=== PATIENT | male | born 1995 | race Caucasian/White ===

== ENCOUNTER 2022-05-13 03:52 | Emergency (ER) | payer BC ==
[~2022-05-13] VITALS: Ht 170.1 cm; Wt 86.2 kg
[2022-05-13 06:02] LABS: ALKALINE PHOSPHATASE 83 U/L (45-117); BUN 10 mg/dl (7-24); CHLORIDE 106 mmol/L (98-107); CREATININE 0.88 mg/dL (0.70-1.30); POTASSIUM 3.8 mmol/L (3.5-5.1); SGOT/AST 34 IU/L (3-35); SGPT/ALT 37 U/L (12-78); SODIUM 140 mmol/L (136-145); TOTAL PROTEIN 7.9 gm/dL (6.4-8.2)
[2022-05-13 06:13] LABS: HEMATOCRIT 41.5 % (42.0-52.0); MEAN CELL VOLUME 91.4 fl (80.0-94.0); MEAN CORPUSCULAR HGB 31.7 pg (27.0-31.0); MEAN CORPUSCULAR HGB CONC 34.7 g/dl (33.0-37.0); MEAN PLATELET VOLUME 9.5 fl (9.6-12.3); PLATELET COUNT AUTOMATED 428 10*3/uL (130-400); RED BLOOD COUNT 4.54 10*6/uL (4.50-5.90); RED CELL DISTRI WIDTH 12.9 % (0-14.5); WHITE BLOOD COUNT 29.1 10*3/uL (4.8-10.8)
[2022-05-13 06:21] LABS: MANUAL DIFF REFLEX YES
[2022-05-13 06:32] LABS: TOTAL CELLS COUNTED 100 #CELLS
[2022-05-13 06:33] LABS: PLATELET SUFFICIENCY HIGH (NORMAL)
== END 2022-05-13 06:39 | disposition short-term general hospital (02) ==
LOC: ED 03:52
PROVIDERS: Internal Medicine
DX: S02.32XA Fracture of orbital floor, left side, initial encounter for closed fracture (principal); S01.81XA Laceration without foreign body of other part of head, initial encounter; H05.3 Deformity of orbit; Y08.89XA Assault by other specified means, initial encounter; Y93.89 Activity, other specified; Y92.89 Other specified places as the place of occurrence of the external cause; Y99.8 Other external cause status

== ENCOUNTER → 2023-06-17 | Outpatient (CLI) | payer BC ==
[2023-06-17 09:20] LABS: BILIRUBIN Negative (Negative); BLOOD Negative (Negative); CLARITY Clear (Clear); COLOR Dark Yellow (Yellow); GLUCOSE Negative (Negative); KETONE Trace (Negative); LEUKO ESTERASE Trace (Negative); NITRITE Negative (Negative); SPECIFIC GRAVITY 1.025 (1.001-1.030)
[2023-06-17 09:25] LABS: BASO # 0.1 10*3/uL (0.0-0.1); BASO % 0.5 % (0.0-1.0); EOS # 0.1 10*3/uL (0.0-0.4); HEMATOCRIT 45.3 % (42.0-52.0); LYMPH # 2.8 10*3/uL (1.3-4.4); LYMPH % 27.6 % (27.0-41.0); MEAN CELL VOLUME 91.9 fl (80.0-94.0); MEAN CORPUSCULAR HGB 32.7 pg (27.0-31.0); MEAN CORPUSCULAR HGB CONC 35.5 g/dl (33.0-37.0); MEAN PLATELET VOLUME 9.8 fl (9.6-12.3); MONO # 0.7 10*3/uL (0.1-1.0); MONO % 7.4 % (3.0-9.0); NEUT # 6.3 10*3/uL (2.3-7.9); NEUT % 63.2 % (47.0-73.0); PLATELET COUNT AUTOMATED 327 10*3/uL (130-400); RED BLOOD COUNT 4.93 10*6/uL (4.50-5.90); RED CELL DISTRI WIDTH 12.7 % (0-14.5); RETICULOCYTE % 1.42 % (0.50-2.50)
[2023-06-17 09:44] LABS: MUCOUS 1+
[2023-06-17 11:03] LABS: ALKALINE PHOSPHATASE 85 U/L (46-116); BUN 9 mg/dl (9-23); CHLORIDE 102 mmol/L (98-107); CHOLESTEROL 196 mg/dL (<200); GAMMA GLUTAMYL TRANSPEPTIDASE 19 U/L (0-73); LDL CHOLESTEROL 114 mg/dL (9-159); POTASSIUM 3.8 mmol/L (3.4-5.1); SGPT/ALT 28 U/L (10-49); THYROXINE (T4) TOTAL 8.3 ug/dl (4.5-10.9); TOTAL PROTEIN 7.8 gm/dL (6.0-8.0); TRIGLYCERIDES 100 mg/dl (<150); URIC ACID 6.6 mg/dL (3.7-9.2)
[2023-06-17 11:26] LABS: VITAMIN D, 25-HYDROXY 32.1 ng/mL (30-100)
[2023-06-18 12:07] LABS: ANTI-DSDNA ANTIBODIES <1 IU/mL (0-9)
== END | disposition home or self-care (01) ==
LOC: LAB 08:52
PROVIDERS: ATTEND Family Medicine
DX: E55.9 Vitamin D deficiency, unspecified (principal); E78.5 Hyperlipidemia, unspecified; R79.89 Other specified abnormal findings of blood chemistry; R53.83 Other fatigue

== ENCOUNTER → 2024-02-18 | Outpatient (CLI) | payer BC ==
[2024-02-18 10:55] LABS: BASO # 0.1 10*3/uL (0.0-0.1); BASO % 1.3 % (0.0-1.0); EOS # 0.2 10*3/uL (0.0-0.4); EOS % 2.8 % (1.0-4.0); HEMATOCRIT 44.4 % (42.0-52.0); LYMPH # 2.4 10*3/uL (1.3-4.4); LYMPH % 34.8 % (27.0-41.0); MEAN CELL VOLUME 93.9 fl (80.0-94.0); MEAN CORPUSCULAR HGB 32.3 pg (27.0-31.0); MEAN CORPUSCULAR HGB CONC 34.5 g/dl (33.0-37.0); MEAN PLATELET VOLUME 10.1 fl (9.6-12.3); MONO # 0.7 10*3/uL (0.1-1.0); MONO % 9.9 % (3.0-9.0); NEUT # 3.5 10*3/uL (2.3-7.9); NEUT % 50.6 % (47.0-73.0); PLATELET COUNT AUTOMATED 303 10*3/uL (130-400); RED BLOOD COUNT 4.73 10*6/uL (4.50-5.90); RED CELL DISTRI WIDTH 12.6 % (0-14.5); RETICULOCYTE % 1.54 % (0.50-2.50); WHITE BLOOD COUNT 6.9 10*3/uL (4.8-10.8)
[2024-02-18 10:56] LABS: BILIRUBIN Negative (Negative); BLOOD Negative (Negative); CLARITY Clear (Clear); COLOR Yellow (Yellow); GLUCOSE Negative (Negative); KETONE Negative (Negative); LEUKO ESTERASE Negative (Negative); NITRITE Negative (Negative); UROBILINOGEN 0.2 E.U./dl (0.0-1.0)
[2024-02-18 11:04] LABS: RBC 0-2 rbc/hpf (0-2)
[2024-02-18 11:39] LABS: ALKALINE PHOSPHATASE 71 U/L (46-116); BUN 15 mg/dl (9-23); CHLORIDE 104 mmol/L (98-107); CHOLESTEROL 212 mg/dL (<200); GAMMA GLUTAMYL TRANSPEPTIDASE 17 U/L (0-73); LDL CHOLESTEROL 123 mg/dL (9-159); POTASSIUM 4.4 mmol/L (3.4-5.1); SGPT/ALT 42 U/L (5-49); TOTAL PROTEIN 7.7 gm/dL (6.0-8.0); TRIGLYCERIDES 115 mg/dl (<150)
[2024-02-18 17:37] LABS: VITAMIN D, 25-HYDROXY 18.9 ng/mL (30-100)
[2024-02-19 11:08] LABS: ANTI-DSDNA ANTIBODIES <1 IU/mL (0-9)
== END | disposition home or self-care (01) ==
LOC: LAB 10:26
PROVIDERS: ATTEND Family Medicine
DX: R06.02 Shortness of breath (principal); R53.83 Other fatigue; E78.5 Hyperlipidemia, unspecified; E55.9 Vitamin D deficiency, unspecified; R79.89 Other specified abnormal findings of blood chemistry

== ENCOUNTER → 2025-03-25 | Outpatient (CLI) | payer BC | END | disposition home or self-care (01) | LOC: MRI 08:45 | PROVIDERS: ATTEND Chiropractor | DX: M43.17 Spondylolisthesis, lumbosacral region (principal); M48.061 Spinal stenosis, lumbar region without neurogenic claudication; M54.50 Low back pain, unspecified ==